=== PATIENT | female | born 1990 ===

== ENCOUNTER 2024-10-31 06:14 | Day surgery (SDC) | payer BC, SELFPAY ==
[2024-10-17 14:22] VITALS: BMI 30.9
[2024-10-17 14:42] LABS: Hematocrit 38.0 % (37.0-47.0); Hemoglobin 12.8 g/dL (12.0-16.0); Mean Corp Hgb Conc. 33.7 g/dL (33.0-37.0); Mean Corpuscular Volume 86.8 fL (81.0-99.0); Platelet Count 182 10^3/uL (130-400); Red Cell Dist. Width 12.1 % (11.5-14.5)
[2024-10-31] VITALS (7 sets, daily range): BP systolic 128–143; BP diastolic 70–99; BMI 30.9
== END 2024-10-31 10:56 | disposition home or self-care (01) ==
LOC: SDS 06:14
PROVIDERS: ATTENDING PHYSICIAN Otolaryngology Facial Plastic Surgery; FAMILY PHYSICIAN Family Medicine; OTHER PHYSICIAN Internal Medicine Cardiovascular Disease
DX: S02.2XXA Fracture of nasal bones, initial encounter for closed fracture (principal); X58.XXXA Exposure to other specified factors, initial encounter; J32.9 Chronic sinusitis, unspecified; J34.3 Hypertrophy of nasal turbinates
CPT/HCPCS: 30140; 21325; 36415; 85027; 88304; 88311